=== PATIENT | female | born 1985 | race African-American/Black ===

== ENCOUNTER 2016-08-01 23:04 | Emergency (ER) | payer MEDICAID ==
[2016-08-01 23:27] VITALS: BP 132/78
--- NOTE | 2016-08-01 23:54 | ER Document Report ---
HPI - HPI Patient complains to provider of: skin rash Pain Level: Denies Context: Patient is a 31-year-old female that comes emergency department for chief complaint of a rash on the top of her left hand, she states that it has been there for months, she states that initially it was irritated, red, and little fluid-filled areas, and was very itchy, she applied a steroid to it and it improved but has not resolved. The area is dry, nontender, no longer itchy. She denies any other areas of concern. She denies any other symptoms. - REPRODUCTIVE Reproductive: DENIES: : - DERM Skin Color: Normal Past Medical History - General Information source: Patient - Social History Smoking Status: Never Smoker Family History: Reviewed & Not Pertinent Patient has suicidal ideation: No Patient has homicidal ideation: No Neurological Medical History: Reports: Hx Migraine Renal/ Medical History: Denies: Hx Peritoneal Dialysis Surgical Hx: Negative - Immunizations Immunizations up to date: Yes Hx Diphtheria, Pertussis, Tetanus Vaccination: Yes Vertical Provider Document - CONSTITUTIONAL General Appearance: WD/WN, No Apparent Distress - INFECTION CONTROL TRAVEL OUTSIDE OF THE [place] IN LAST 30 DAYS: No - HEENT HEENT: Atraumatic, Normocephalic - NECK Neck: Normal Inspection - RESPIRATORY Respiratory: Breath Sounds Normal, No Respiratory Distress O2 Sat by Pulse Oximetry: 100 - CARDIOVASCULAR Cardiovascular: Regular Rate, Regular Rhythm - GI/ABDOMEN Gastrointestinal: Abdomen Soft, Abdomen Non-Tender - MUSCULOSKELETAL/EXTREMETIES Musculoskeletal/Extremeties: MAEW, FROM, Non-Tender - DERM Integumentary: Rash - There is a roughly oval-shaped area of dry skin with mild coarseness to the area and what appears to be resolved vesicles which were old. No induration, erythema, abnormal heat to the area, normal hand exam otherwise Course - Re-evaluation Re-evalutation: Mild skin rash consistent with an area of eczema which has improved but is still dry. Advised patient on this, no evidence of cellulitis, low suspicion of any concerning abnormalities. - Vital Signs Vital signs: Temp Pulse Resp BP Pulse Ox 99 F 85 18 132/78 H 100 08/01/16 23:22 08/01/16 23:22 08/01/16 23:22 08/01/16 23:22 08/01/16 23:22 Discharge - Discharge Clinical Impression: Skin rash Condition: Stable Disposition: HOME, SELF-CARE Additional Instructions: Examination is consistent with an area of eczema inflammation - the dermatitis is improved in the area but has resulted in dry abnormal skin. This will resolve with time, I recommend applying a regular moisturizer to the skin area. If the area becomes inflamed again (i.e. stress level goes up, lack of sleep, illness, etc.), You may need a mild topical steroid such as hydrocortisone. Follow-up with primary care for additional management. Return to emergency department for any concerning symptoms. Forms: Parent Work Note, Elevated Blood Pressure
== END 2016-08-02 01:11 | disposition home or self-care (01) ==
LOC: ER 23:04
DX: R21 Rash and other nonspecific skin eruption (principal)
CPT/HCPCS: 99282

== ENCOUNTER 2016-08-06 16:36 | Emergency (ER) | payer MEDICAID ==
[2016-08-06 17:21] VITALS: BP 134/74
--- NOTE | 2016-08-06 18:02 | ER Document Report ---
ED General - General Chief Complaint: Vaginal Bleeding Stated Complaint: VAGINAL BLEEDING Time Seen by Provider: 08/06/16 16:46 TRAVEL OUTSIDE OF THE [place] IN LAST 30 DAYS: No - HPI Patient complains to provider of: Notes: Patient is a coming in for evaluation to see she is . Patient states showed positive test at home however did recently have an episode where she had a failure control did take Plan B states this is approximately 3-4 weeks ago did have heavy bleeding denies any bleeding at this time however does not believe that she is . - Related Data Allergies/Adverse Reactions: No Known Allergies Allergy (Verified 08/06/16 16:48) Past Medical History - Social History Smoking Status: Unknown if Ever Smoked Chew tobacco use (# tins/day): No Frequency of alcohol use: None Drug Abuse: None Family History: Reviewed & Not Pertinent Patient has suicidal ideation: No Patient has homicidal ideation: No Neurological Medical History: Reports: Hx Migraine Renal/ Medical History: Denies: Hx Peritoneal Dialysis - Immunizations Immunizations up to date: Yes Hx Diphtheria, Pertussis, Tetanus Vaccination: Yes Review of Systems - Review of Systems Constitutional: Other - Eval EENT: No symptoms reported Cardiovascular: No symptoms reported Respiratory: No symptoms reported Gastrointestinal: No symptoms reported Genitourinary: No symptoms reported Female Genitourinary: No symptoms reported Musculoskeletal: No symptoms reported Skin: No symptoms reported Hematologic/Lymphatic: No symptoms reported Neurological/Psychological: No symptoms reported Physical Exam - Vital signs Vitals: Temp Pulse Resp BP Pulse Ox 98.0 F 91 14 134/74 H 94 08/06/16 16:40 08/06/16 16:40 08/06/16 16:40 08/06/16 16:40 08/06/16 16:40 Interpretation: Normal - General General appearance: Appears well, Alert - HEENT Head: Normocephalic, Atraumatic Eyes: Normal Pupils: PERRL - Respiratory Respiratory status: No respiratory distress Chest status: Nontender Breath sounds: Normal Chest palpation: Normal - Cardiovascular Rhythm: Regular Heart sounds: Normal auscultation Murmur: No - Abdominal Inspection: Normal Distension: No distension Bowel sounds: Normal Tenderness: Nontender Organomegaly: No organomegaly - Back Back: Normal, Nontender - Extremities General upper extremity: Normal inspection, Nontender, Normal color, Normal ROM , Normal temperature General lower extremity: Normal inspection, Nontender, Normal color, Normal ROM , Normal temperature, Normal weight bearing. No: Jenny's sign - Neurological Neuro grossly intact: Yes Cognition: Normal Orientation: AAOx4 [place] Coma Scale Eye Opening: Spontaneous [place] Coma Scale Verbal: Oriented [place] Coma Scale Motor: Obeys Commands [place] Coma Scale Total: 15 Speech: Normal Motor strength normal: LUE, RUE, LLE, RLE Sensory: Normal - Psychological Associated symptoms: Normal affect, Normal mood - Skin Skin Temperature: Warm Skin Moisture: Dry Skin Color: Normal Course - Re-evaluation Re-evalutation: 08/06/16 20:48 Patient's parents the testing come back positive with a Quant just over 1500. 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 - Vital Signs Vital signs: Temp Pulse Resp BP Pulse Ox 98.0 F 91 14 134/74 H 94 08/06/16 16:40 08/06/16 16:40 08/06/16 16:40 08/06/16 16:40 08/06/16 16:40 - Laboratory Laboratory results interpreted by me: 08/06/16 16:55 Beta HCG, Quant 1757.50 H Discharge - Discharge Clinical Impression: Qualifiers: Weeks of gestation: less than 8 weeks Qualified Code(s): Z3A.01 - Less than 8 weeks gestation of Disposition: HOME, SELF-CARE Instructions: ([facility]) Prescriptions: Pnv with Ca,No.72/Iron/FA [ Plus Tablet] 1 each PO DAILY #30 tablet
== END 2016-08-06 18:03 | disposition home or self-care (01) ==
LOC: ER 16:36
DX: Z32.01 Encounter for pregnancy test, result positive (principal)
CPT/HCPCS: 36415; 84702; 99284

== ENCOUNTER 2016-08-16 08:57 | Emergency (ER) | payer MEDICAID ==
[2016-08-16 09:06] VITALS: BP 124/76
[2016-08-16] MEDS ORDERED: PENICILLIN V POTASSIUM 500 MG TABLET PO ONE (09:14)
[2016-08-16] MEDS ORDERED: IBUPROFEN 800 MG TABLET PO ONE (09:14)
--- NOTE | 2016-08-16 09:19 | ER Document Report ---
HPI - HPI Patient complains to provider of: sore throat Onset: Yesterday Onset/Duration: Gradual Quality of pain: Achy Pain Level: 5 Context: pt c/o sorethroat, bodyaches and mild cough that started yesterday. Pt with fever today. Associated Symptoms: Body/muscle aches, Nonproductive cough, Fever, Sore throat. denies: Productive cough, Headache, Nausea Exacerbated by: Denies Relieved by: Denies Similar symptoms previously: Yes Recently seen / treated by doctor: No - ROS ROS below otherwise negative: Yes Systems Reviewed and Negative: Yes All other systems reviewed and negative - CONSTITUTIONAL Constitutional: REPORTS: Fever - EENT EENT: REPORTS: Sore Throat - NEURO Neurology: DENIES: Headache - CARDIOVASCULAR Cardiovascular: DENIES: Chest pain - RESPIRATORY Respiratory: REPORTS: Coughing. 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 IN LAST 30 DAYS: No - HEENT HEENT: Atraumatic, Normocephalic, Pharyngeal Exudate, Pharyngeal Tenderness, Pharyngeal Erythema - NECK Neck: Supple, Lymphadenopathy-Left, Lymphadenopathy-Right - RESPIRATORY Respiratory: Breath Sounds Normal, No Respiratory Distress, Chest Non-Tender. negative: Rales, Rhonchi, Wheezing O2 Sat by Pulse Oximetry: 100 - CARDIOVASCULAR Cardiovascular: Regular Rate, Regular Rhythm, No Murmur - MUSCULOSKELETAL/EXTREMETIES Musculoskeletal/Extremeties: MAEW - NEURO Level of Consciousness: Awake, Alert, Appropriate Motor/Sensory: No Motor Deficit - DERM Integumentary: Warm, Dry, No Rash Course - Vital Signs Vital signs: Temp Pulse Resp BP Pulse Ox 100.8 F H 97 18 124/76 100 08/16/16 09:04 08/16/16 09:04 08/16/16 09:04 08/16/16 09:04 08/16/16 09:04 Discharge - Discharge Clinical Impression: Tonsillitis, Sore throat Condition: Stable Disposition: HOME, SELF-CARE Instructions: Oral Narcotic Medication ([facility]), Tonsillitis ([facility]), Sore Throat ( [facility]), Penicillin V K ([facility]), Use of [id number] Ibuprofen ([facility]) Additional Instructions: Return as needed for any new or worsening symptoms follow up with a primary care provider for a recheck stay well hydrated Prescriptions: Hydrocodone/Acetaminophen [Goode 5-325 Tablet] 1 each PO Q4 PRN #15 tablet PRN Reason: Penicillin V Potassium [Penicillin Vk 500 mg Tablet] 500 mg PO BID #20 tablet Forms: Return to Work Referrals: [facility] [Provider Group] - Follow up as needed
== END 2016-08-16 09:27 | disposition home or self-care (01) ==
LOC: ER 08:57
DX: J03.90 Acute tonsillitis, unspecified (principal); R50.9 Fever, unspecified; M79.1 Myalgia; R05 Cough; R59.0 Localized enlarged lymph nodes; F17.200 Nicotine dependence, unspecified, uncomplicated
CPT/HCPCS: 99282; J3490 ×2

== ENCOUNTER 2016-10-07 00:38 | Emergency (ER) | payer MEDICAID ==
[2016-10-07] MEDS ORDERED: HYDROXYZINE PAMOATE 50 MG CAPSULE PO ONE (01:46)
[2016-10-07] MEDS ORDERED: PREDNISONE 20 MG TABLET PO ONE (01:47)
--- NOTE | 2016-10-07 01:47 | ER Document Report ---
ED General - General Chief Complaint: Rash Stated Complaint: POSSIBLE RASH Time Seen by Provider: 10/07/16 01:09 Notes: Patient is a 31-year-old female who presents with diffuse itching the past 3 days. Notes multiple scabbing, crusted lesions over the entirety of her upper and lower extremities. Crepitus is severe, constant pruritus to the affected area. States she has had eczema in the past but that this feels worse. Nothing seems to worsen or trigger her symptoms. States she has tried Benadryl without improvement. She has not seen her primary care doctor regarding today' s concerns. She denies any shortness of breath, vomiting, diarrhea or syncope. Patient came to the emergency department tonight as the itching got so severe she could not take it anymore. TRAVEL OUTSIDE OF THE [place] IN LAST 30 DAYS: No - Related Data Allergies/Adverse Reactions: No Known Allergies Allergy (Verified 08/16/16 09:03) Past Medical History - General Information source: Patient - Social History Smoking Status: Never Smoker Frequency of alcohol use: None Drug Abuse: None Lives with: Family Family History: Reviewed & Not Pertinent Patient has suicidal ideation: No Patient has homicidal ideation: No Neurological Medical History: Reports: Hx Migraine Renal/ Medical History: Denies: Hx Peritoneal Dialysis - Immunizations Immunizations up to date: Yes Hx Diphtheria, Pertussis, Tetanus Vaccination: Yes Review of Systems - Review of Systems Notes: Constitutional: Negative for fever. HENT: Negative for sore throat. Eyes: Negative for visual changes. Cardiovascular: Negative for chest pain. Respiratory: Negative for shortness of breath. Gastrointestinal: Negative for abdominal pain, vomiting or diarrhea. Genitourinary: Negative for dysuria. Musculoskeletal: Negative for back pain. Skin: Positive for rash. Neurological: Negative for headaches, weakness or numbness. 10 point ROS negative except as marked above and in HPI. Physical Exam - Vital signs Vitals: Temp Resp BP Pulse Ox 98.2 F 16 129/98 H 98 10/07/16 00:45 10/07/16 00:45 10/07/16 00:45 10/07/16 00:45 Interpretation: Normal Notes: PHYSICAL EXAMINATION: GENERAL: Well-appearing, well-nourished and in no acute distress. HEAD: Atraumatic, normocephalic. EYES: sclera anicteric, conjunctiva are normal. ENT: Moist mucous membranes. NECK: Normal range of motion LUNGS: Normal work of breathing HEART: 2+ radial pulses bilaterally EXTREMITIES: no pitting or edema. No cyanosis. NEUROLOGICAL: No focal neurological deficits. Moves all extremities spontaneously and on command. PSYCH: Normal mood, normal affect. SKIN: Warm, Dry, normal turgor, small areas of raised plaques on the bilateral upper and lower extremities as well as the upper back and chest wall. Course - Re-evaluation Re-evalutation: 10/07/16 01:44 Patient presents with a nonspecific rash that appears most consistent with eczema diffusely located over her bilateral upper and lower extremities as well as her antecubital fossae. Given the degree of her symptoms will start on hydroxyzine and prednisone. I have encouraged close outpatient dermatology follow-up. At this time will discharge with return precautions and follow-up recommendations. Verbal discharge instructions given a the bedside and opportunity for questions given. Medication warnings reviewed. Patient is in agreement with this plan and has verbalized understanding of return precautions and the need for primary care follow-up in the next 24-72 hours. - Vital Signs Vital signs: Temp Pulse Resp BP Pulse Ox 98.2 F 16 129/98 H 98 10/07/16 00:45 10/07/16 00:45 10/07/16 00:45 10/07/16 00:45 Discharge - Discharge Clinical Impression: Eczema Qualifiers: Eczema type: unspecified Qualified Code(s): L30.9 - Dermatitis, unspecified Condition: Good Disposition: HOME, SELF-CARE Additional Instructions: Please take medications that have been prescribed as directed. Follow-up with a skin diving teacher at your earliest ability. Return for any difficulty breathing, vomiting, abdominal pain or passing out. Please also return for any additional symptoms that are concerning to you. Prescriptions: Hydroxyzine HCl 50 mg PO Q8HP PRN #30 tablet PRN Reason: Prednisone [Deltasone 20 mg Tablet] 3 tab PO DAILY 7 Days Referrals: ARCHANA LAZAR MD [Primary Care Provider] - Follow up as needed
[2016-10-07 02:23] VITALS: BP 123/77
== END 2016-10-07 02:10 | disposition home or self-care (01) ==
LOC: ER 00:38
DX: L30.9 Dermatitis, unspecified (principal)
CPT/HCPCS: 99282; J3490; J7512

== ENCOUNTER 2017-01-14 09:06 | Emergency (ER) | payer MEDICAID ==
[2017-01-14 10:36] LABS: APPEARANCE,URINE CLOUDY; BILIRUBIN,URINE NEGATIVE (NEGATIVE); GLUCOSE, URINE NEGATIVE (NEGATIVE); KETONES,URINE NEGATIVE (NEGATIVE); LEUKOCYTE ESTERASE,URINE MODERATE (NEGATIVE); NITRITE,URINE NEGATIVE (NEGATIVE); PROTEIN,URINE NEGATIVE (NEGATIVE); URINE SPECIFIC GRAVITY 1.026
--- NOTE | 2017-01-14 11:22 | RADIOLOGY REPORT (SQ) ---
EXAM DESCRIPTION: U/S NON-OB PELVIS W/O DOP COMPLETED DATE/TIME: 01/14/2017 10:58 am REASON FOR STUDY: right sided pelvic pain/hx tumor COMPARISON: None. TECHNIQUE: Dynamic and static grayscale images acquired of the pelvis via transabdominal approach an d recorded on PACS. Additional selected color Doppler and spectral images recorded. LIMITATIONS: None. FINDINGS: UTERUS: Contour normal. No mass. ENDOMETRIAL STRIPE: No focal or generalized thickening. No masses. CERVIX: No nabothian cysts. RIGHT OVARY: There is a large mass in the right adnexa that is generally homogeneous but is somewhat complex with an area containing calcifications. This mass measures 10.1 x 8.7 x 7 cm. RIGHT OVARY DOPPLER: Normal arterial vascular flow without evidence for torsion. LEFT OVARY: Not seen. LEFT OVARY DOPPLER: Ovary not seen. FREE FLUID: None noted. OTHER: No other significant finding. MEASUREMENTS: UTERUS: 9.4 x 5.8 x 4.7 cm. ENDOMETRIAL STRIPE: 9 mm. RIGHT OVARY: 2.4 x 2.6 x 2.6 cm. LEFT OVARY: Not seen. IMPRESSION: There is a large mass in the right adnexa as described. This may suggest a dermoid. TECHNICAL DOCUMENTATION: JOB ID: [id number]- All Rights Reserved
--- NOTE | 2017-01-14 12:03 | ER Document Report ---
ED General - General Chief Complaint: Abdominal Pain Stated Complaint: ABDOMINAL PAIN Time Seen by Provider: 01/14/17 09:38 Mode of Arrival: Ambulatory Information source: Patient Notes: Patient states she had some right lower quadrant pain this morning. It was mild to moderate. It was constant. Nothing made it better or worse. It did not radiate. No urinary symptoms. No vaginal discharge or bleeding. She has had a normal appetite and has had no nausea or vomiting. No trouble with stools. She states she has been told in the past that she has a "fibroid". And wanted to be evaluated. TRAVEL OUTSIDE OF THE [place] IN LAST 30 DAYS: No - Related Data Allergies/Adverse Reactions: No Known Allergies Allergy (Verified 01/14/17 09:09) Past Medical History - General Information source: Patient - Social History Smoking Status: Current Every Day Smoker Chew tobacco use (# tins/day): No Frequency of alcohol use: None Drug Abuse: None Family History: Reviewed & Not Pertinent Patient has suicidal ideation: No Neurological Medical History: Reports: Hx Migraine Renal/ Medical History: Denies: Hx Peritoneal Dialysis Surgical Hx: Negative - Immunizations Immunizations up to date: Yes Hx Diphtheria, Pertussis, Tetanus Vaccination: Yes Review of Systems - Review of Systems Constitutional: denies: Chills, Fever Cardiovascular: denies: Chest pain, Palpitations Respiratory: denies: Cough, Short of breath -: Yes All other systems reviewed and negative Physical Exam - Vital signs Vitals: Temp Pulse BP Pulse Ox 98.8 F 78 130/80 H 94 01/14/17 09:11 01/14/17 09:11 01/14/17 09:11 01/14/17 09:11 Interpretation: Normal - General General appearance: Appears well, Alert - HEENT Head: Normocephalic, Atraumatic Eyes: Normal Pupils: PERRL - Respiratory Respiratory status: No respiratory distress Chest status: Nontender Breath sounds: Normal Chest palpation: Normal - Cardiovascular Rhythm: Regular Heart sounds: Normal auscultation Murmur: No - Abdominal Inspection: Normal Distension: No distension Bowel sounds: Normal Tenderness: Nontender Organomegaly: No organomegaly - Back Back: Normal, Nontender - Extremities General upper extremity: Normal inspection, Nontender, Normal color, Normal ROM , Normal temperature General lower extremity: Normal inspection, Nontender, Normal color, Normal ROM , Normal temperature, Normal weight bearing. No: Jenny's sign - Neurological Neuro grossly intact: Yes Cognition: Normal Orientation: AAOx4 [place] Coma Scale Eye Opening: Spontaneous [place] Coma Scale Verbal: Oriented Ino Coma Scale Motor: Obeys Commands [place] Coma Scale Total: 15 Speech: Normal Motor strength normal: LUE, RUE, LLE, RLE Sensory: Normal - Psychological Associated symptoms: Normal affect, Normal mood - Skin Skin Temperature: Warm Skin Moisture: Dry Skin Color: Normal Course - Vital Signs Vital signs: Temp Pulse Resp BP Pulse Ox 98.8 F 78 130/80 H 94 01/14/17 09:11 01/14/17 09:11 01/14/17 09:11 01/14/17 09:11 - Laboratory Laboratory results interpreted by me: 01/14/17 09:40 Urine Blood SMALL H Urine Urobilinogen 2.0 H Ur Leukocyte Esterase MODERATE H - Diagnostic Test Radiology reviewed: Image reviewed, Reports reviewed - Ultrasound shows patient have a large mass in the right adnexa. It appears consistent with a dermoid cyst. Discharge - Discharge Clinical Impression: Dermoid tumor Condition: Stable Disposition: HOME, SELF-CARE Instructions: Pelvic Pain ([facility]) Additional Instructions: Please call your SEE SUPERVISOR provider or Dr. Moran as soon as possible to arrange follow-up. Referrals: SHERIE MORAN MD [ACTIVE STAFF] - Follow up in 1 week
[2017-01-14 12:13] VITALS: BP 135/72
== END 2017-01-14 12:12 | disposition home or self-care (01) ==
LOC: ER 09:06
DX: D27.0 Benign neoplasm of right ovary (principal); R10.31 Right lower quadrant pain; F17.200 Nicotine dependence, unspecified, uncomplicated
CPT/HCPCS: 76856; 81001; 81025; 99284

== ENCOUNTER 2017-12-10 22:15 | Emergency (ER) | payer MEDICAID ==
[2017-12-11 00:29] LABS: APPEARANCE,URINE SLIGHTLY-CLOUDY; BILIRUBIN,URINE SMALL (NEGATIVE); COLOR,URINE YELLOW; GLUCOSE, URINE NEGATIVE (NEGATIVE); KETONES,URINE NEGATIVE (NEGATIVE); LEUKOCYTE ESTERASE,URINE MODERATE (NEGATIVE); NITRITE,URINE NEGATIVE (NEGATIVE); PROTEIN,URINE 30 mg/dL (NEGATIVE); URINE SPECIFIC GRAVITY 1.035
--- NOTE | 2017-12-11 01:21 | RADIOLOGY REPORT (SQ) ---
US TRANSVAGINAL HISTORY: Right pelvic pain. COMPARISON: 01/14/2017 TECHNIQUE: Grayscale and color Doppler transvaginal ultrasound of the pelvis was performed. FINDINGS: The uterus is anteverted and measures 8.7 x 6.2 x 4.7 cm. The endometrium measures 7 mm in thickness. Cervix measures 2.1 cm in length. The right ovary measures 5.0 x 2.7 x 2.9 cm. 9.5 x 10.2 x 6.5 cm complex homogeneously echogenic mass in the right adnexa with a focus of internal calcification. No internal color Doppler flow is visualized. Left ovary is not visualized. No free fluid is seen in the pelvis. IMPRESSION: Redemonstrated 10.2 cm complex mass in the right adnexa with characteristics suggesting a desmoid cyst. Recommend follow-up pelvic MRI with IV contrast or surgical evaluation. Reference: Radiology 2010 Nov;256(3):943-73
[2017-12-11] MEDS ORDERED: HYDROCODONE/ACETAMINOPHEN 5-325 MG (6 TAB/ER DISP) PO PRN (02:00)
--- NOTE | 2017-12-11 02:05 | ER Document Report ---
ED General - General Chief Complaint: Abdominal Pain Stated Complaint: RIGHT SIDE PAIN Time Seen by Provider: 12/10/17 23:36 Notes: Patient is a 32-year-old female who presents with complaint of pain in the right lower quadrant started on the . No vomiting. No fevers. No dysuria. No abnormal vaginal discharge or bleeding. She says she does have history of dermoid cyst in this area and she is unsure if this could be it. She has not been followed for this for some time. No history of ovarian torsion. No other complaints at this time. She says she took 1 hydrocodone pill at home and the pain is since gone. TRAVEL OUTSIDE OF THE [place] IN LAST 30 DAYS: No - Related Data Allergies/Adverse Reactions: No Known Allergies Allergy (Verified 01/14/17 09:09) Past Medical History - Social History Smoking Status: Current Every Day Smoker Frequency of alcohol use: Social Drug Abuse: Marijuana Family History: Reviewed & Not Pertinent Patient has suicidal ideation: No Patient has homicidal ideation: No Neurological Medical History: Reports: Hx Migraine Renal/ Medical History: Denies: Hx Peritoneal Dialysis - Immunizations Immunizations up to date: Yes Hx Diphtheria, Pertussis, Tetanus Vaccination: Yes Review of Systems - Review of Systems Notes: My Normal Review Basic REVIEW OF SYSTEMS: CONSTITUTIONAL : Denies fever, chills, or sweats. Denies recent illness. RESPIRATORY: Denies cough, cold, or chest congestion. Denies shortness of breath, difficulty breathing, or wheezing. GASTROINTESTINAL: Lower quadrant abdominal pain. Denies nausea, vomiting, or diarrhea. GENITOURINARY: Denies difficulty urinating, painful urination, burning, frequency, or blood in urine. FEMALE GENITOURINARY: Denies vaginal bleeding, abnormal or irregular periods. MUSCULOSKELETAL: Denies neck or back pain or joint pain or swelling. SKIN: Denies rash or skin lesions. NEUROLOGICAL: Denies altered mental status or loss of consciousness. Denies headache. Denies weakness or paralysis or loss of use of either side. Denies problems with gait or speech. Denies sensory or motor loss. ALL OTHER SYSTEMS REVIEWED AND NEGATIVE. Physical Exam - Vital signs Vitals: Temp Pulse Resp BP Pulse Ox 98.1 F 77 18 133/86 H 99 12/10/17 22:24 12/10/17 22:24 12/10/17 22:24 12/10/17 22:24 12/10/17 22:24 - Notes Notes: General Appearance: Well nourished, alert, cooperative, no acute distress, no obvious discomfort. Well-appearing. Vitals: reviewed, See vital signs table. Head: no swelling or tenderness to the head Eyes: PERRL, EOMI, Conjuctiva clear Mouth: No decreasd moisture Neck: Supple, no neck tenderness, No thyromegaly Lungs: No wheezing, No rales, No rhonci, No accessory muscle use, good air exchange bilaterally. Heart: Normal rate, Regular rythm, No murmur, no rub Abdomen: Normal BS, soft, No rigidity, No reproducible abdominal tenderness palpation., No guarding, no rebound, no abdominal masses, no organomegaly Extremities: strength 5/5 in all extremities, good pulses in all extremities, no swelling or tenderness in the extremities, no edema. Skin: warm, dry, appropriate color, no rash Neuro: speech clear, oriented x 3, normal affect, responds appropriately to questions. Course - Re-evaluation Re-evalutation: 12/11/17 02:12 Patient is well-appearing. If the patient safe to be discharged home. She has no reduce pain to palpation therefore I think appendicitis is highly unlikely. Even though pain was gone still obtain a pelvic ultrasound being her history of dermoid cyst. The radiologist did not come comment on the flow of the ovary itself. He said there is no flow within the mass. I did look at the vp of technology's notes and she did comment that there was good flow in the right ovary. I informed the patient that even though there is no signs of torsion now this does not mean that she cannot develop torsion in the future being that she has a large dermoid cyst and therefore she has sudden onset severe pain that is unrelenting she must return to ER so we can reevaluate her. Also talked about the possibility of kidney stone. I informed her that we can do CT scan to look for kidney stone however this is a lot of radiation and currently she is pain-free and looks well and I think it is simply less likely being that she never had any back or flank pain and her pain was only located in the right lower quadrant. Urinalysis shows some signs of infection. This could be contaminant. I talked about just sending urine for culture waiting however her cane is pushing through tomorrow and there is a possibility that the cultures may not be reviewed and might be difficult to get in touch with her in case it does grow out a true urinary tract infection therefore I decided to go ahead and place her on antibiotic now. I informed her to have a low threshold to return to ER if she has recurrent worsening pain or if she feels unwell. She is to follow [facility] in regards to her dermoid cyst. Is now very large so I informed that it is very important she does follow-up with them for continued workup and treatment. Patient agrees with plan will be discharged home. Dictation of this chart was performed using voice recognition software; therefore, there may be some unintended grammatical errors. - Vital Signs Vital signs: Temp Pulse Resp BP Pulse Ox 98.1 F 77 18 133/86 H 99 12/10/17 22:24 12/10/17 22:24 12/10/17 22:24 12/10/17 22:24 12/10/17 22:24 - Laboratory Laboratory results interpreted by me: 12/11/17 00:00 Urine Protein 30 H Urine Bilirubin SMALL H Urine Urobilinogen 4.0 H Ur Leukocyte Esterase MODERATE H Discharge - Discharge Clinical Impression: Dermoid cyst, Right sided abdominal pain Condition: Good Disposition: HOME, SELF-CARE Additional Instructions: I suspect your pain is related to the Dermoid cyst on your right side. It is a large dermoid cyst. Currently you have good blood flow to the ovary; however, sometimes when you have a large cyst you can develop a 'torsion" which is twisting of the ovary. This will cause severe pain that is not improving. If you have sudden onset severe pain that is not improving you need to return tot he ER immediately. Please also return to the ER if you have vomiting, fevers, or if the pain is recurring. Please call the [facility] on saturday for close follow up and reevaluation. There number is on under Dr. Amanda Shea on your discharge instructions. As discussed with you, kidney stone is in the differential but is less likely. Workup for this would include a CT scan. Kidney stone is less likely being the single location of your pain and not much blood in the urine. There is some signs of infection in your urine so we have placed you on an antibiotic. Prescriptions: Cephalexin Monohydrate [Keflex 500 mg Capsule] 500 mg PO BID #10 capsule Referrals: AMANDA SHEA MD [ACTIVE STAFF] - 12/16/17
[2017-12-11] MEDS ORDERED: CEPHALEXIN 500 MG CAPSULE PO ONE (02:09)
[2017-12-11 02:20] VITALS: BP 130/78
== END 2017-12-11 02:19 | disposition home or self-care (01) ==
LOC: ER 22:15
DX: D36.9 Benign neoplasm, unspecified site (principal); R10.31 Right lower quadrant pain; F17.200 Nicotine dependence, unspecified, uncomplicated; F12.10 Cannabis abuse, uncomplicated
CPT/HCPCS: 76830; 81001; 81025; 87086; 93976; 99284

== ENCOUNTER 2020-01-23 13:46 | Emergency (ER) | payer SELFPAY ==
[2020-01-23 13:53] VITALS: BP 146/81
--- NOTE | 2020-01-23 14:25 | ER Document Report ---
HPI - HPI Patient complains to provider of: sore throat Time Seen by Provider: 01/23/20 14:17 Onset: Other - 2 days Onset/Duration: Persistent Quality of pain: Achy Pain Level: 2 Context: Patient presents complaining of sore throat for the past 2 days. Patient denies any fever. Patient reports that she had exudate on her tonsils yesterday. Patient without any cough, congestion, nausea vomiting or diarrhea. Associated Symptoms: Sore throat. denies: Nonproductive cough, Productive cough, Earache, Fever, Nausea, Vomiting Exacerbated by: Denies Relieved by: Denies Similar symptoms previously: No Recently seen / treated by doctor: No - ROS ROS below otherwise negative: Yes Systems Reviewed and Negative: Yes All other systems reviewed and negative - CONSTITUTIONAL Constitutional: DENIES: Fever, Chills - EENT EENT: REPORTS: Sore Throat - RESPIRATORY Respiratory: DENIES: Coughing - GASTROINTESTINAL Gastrointestinal: DENIES: Patient vomiting, Diarrhea - REPRODUCTIVE Reproductive: DENIES: : - DERM Skin Color: Normal Skin Problems: None Past Medical History - General Information source: Patient - Social History Smoking Status: Never Smoker Frequency of alcohol use: None Drug Abuse: None Lives with: Family Family History: Reviewed & Not Pertinent - Medical History Medical History: Negative Neurological Medical History: Reports: Hx Migraine Renal/ Medical History: Denies: Hx Peritoneal Dialysis Surgical Hx: Negative - Immunizations Immunizations up to date: Yes Hx Diphtheria, Pertussis, Tetanus Vaccination: Yes Vertical Provider Document - CONSTITUTIONAL Agree With Documented VS: Yes Exam Limitations: No Limitations General Appearance: WD/WN, No Apparent Distress - INFECTION CONTROL TRAVEL OUTSIDE OF THE [place] IN LAST 30 DAYS: No - HEENT HEENT: Atraumatic, Normocephalic, Pharyngeal Exudate, Pharyngeal Tenderness, Pharyngeal Erythema - NECK Neck: Normal Inspection, Supple. negative: Lymphadenopathy-Left, Lymphadenopathy-Right - RESPIRATORY Respiratory: Breath Sounds Normal, No Respiratory Distress, Chest Non-Tender - CARDIOVASCULAR Cardiovascular: Regular Rate, Regular Rhythm, No Murmur - BACK Back: Normal Inspection - MUSCULOSKELETAL/EXTREMETIES Musculoskeletal/Extremeties: MAEW - NEURO Level of Consciousness: Awake, Alert, Appropriate Motor/Sensory: No Motor Deficit - DERM Integumentary: Warm, Dry, No Rash Course - Re-evaluation Re-evalutation: 01/23/20 15:13 Rapid strep test negative, throat culture is pending at this time. Patient able to manage oral secretions, no concern for [employer]. Patient otherwise nontoxic in appearance. - Vital Signs Vital signs: Temp Pulse Resp BP Pulse Ox 98.2 F 84 16 146/81 H 98 01/23/20 13:52 01/23/20 13:52 01/23/20 13:52 01/23/20 13:52 01/23/20 13:52 - Laboratory Laboratory results interpreted by me: 01/23/20 15:13 Labs- All tests 24 hr 01/23/20 14:20 Group A Strep Rapid NEGATIVE Discharge - Discharge Clinical Impression: Sore throat Condition: Stable Disposition: HOME, SELF-CARE Instructions: Sore Throat ([facility]) Additional Instructions: Return immediately for any new or worsening symptoms Followup with your primary care provider, call tomorrow to make a followup appointment Throat culture is pending, we will call if you need any different treatment Prescriptions: Naproxen [Naprosyn 250 Nmg Tablet] 1 tab PO BID #14 tablet Referrals: [facility] [Provider Group] - Follow up as needed
== END 2020-01-23 15:23 | disposition home or self-care (01) ==
LOC: ER 13:46
DX: J02.9 Acute pharyngitis, unspecified (principal)
CPT/HCPCS: 87070; 87880; 99283